=== PATIENT | male | born 1980 ===

== ENCOUNTER 2021-07-26 11:39 | Emergency (ER) | payer SELFPAY ==
[~2021-07-26] VITALS: Ht 167.6 cm; Wt 70.3 kg
[2021-07-26] MEDS ORDERED: cefTRIAXone SOD 1,000 MG VL IM ONE (16:15)
[2021-07-26 16:38] VITALS: BP 118/77
== END 2021-07-26 17:19 | disposition home or self-care (01) ==
LOC: ER 11:39
DX: L03.211 Cellulitis of face (principal); F12.10 Cannabis abuse, uncomplicated
CPT/HCPCS: 96372; 99283; J0696